=== PATIENT | male | born 1995 | race African-American/Black ===

== ENCOUNTER 2017-06-22 18:26 | Emergency (ER) | payer SELFPAY ==
--- NOTE | 2017-06-22 20:32 | ULT ---
SCROTAL SONOGRAM WITH DUPLEX EVALUATION 06/22/17 HISTORY: Scrotal pain. FINDINGS: The right testicle is 4.1 cm in length an the left 4.0 cm. each has a normal appearance and demonstra rohini good color and spectral doppler flow. IMPRESSION: No evidence of testicular mass or torsion. POS: [facility]
[2017-06-22] MEDS ORDERED: Azithromycin 250 MG TAB ONE ×2 (20:39→20:40)
== END 2017-06-22 20:52 ==
LOC: ERS 18:26
DX: N50.812 Left testicular pain (principal); F31.9 Bipolar disorder, unspecified
CPT/HCPCS: 76870; 93976; 96365; J0696